=== PATIENT | male | born 1980 | race Caucasian/White ===

== ENCOUNTER 2019-11-10 08:00 | Outpatient (CLI) | payer OTHER | END 2019-11-10 23:59 | disposition home or self-care (01) | LOC: LAB.R 08:00 | PROVIDERS: ATTEND Podiatrist | DX: L03.031 Cellulitis of right toe (principal); L03.032 Cellulitis of left toe | CPT/HCPCS: 87070; 87181; 87205 ==

== ENCOUNTER 2021-01-16 14:32 | Outpatient (CLI) | payer OTHER ==
--- NOTE | 2021-01-16 16:57 | MRI Report ---
PROCEDURE: Foot RT W/O INDICATIONS: RIGHT FOOT PAIN TECHNIQUE: Noncontrast coronal and sagittal T1 spin echo and STIR; axial T1 spin echo and T2 fast spin echo with fat saturation through the right foot. COMPARISON: None. FINDINGS: Image quality: Excellent. Bones: The visualized bone marrow demonstrates normal signal on all sequences. The overlying cortex appears intact. Cjpb-se-calxvosy first MTP joint degeneration. No fractures lines or intra-osseous l esions. Scattered subchondral sclerosis and spurring. Soft tissues: The scanned muscles demonstrate normal overall bulk and internal signal. Subcutaneous tissues appear normal as well. No soft tissue masses are present. In the area marked by the skin f iducial at the plantar aspect of the midfoot/forefoot, no underlying signal abnormality is seen. The plantar fascia appears grossly normal. IMPRESSION: Unremarkable appearance of the plantar aspect of the midfoot/forefoot. Theoretically, an MR occult lo w-grade plantar fasciitis is still a differential consideration based on clinical exam findings. Elsewhere, scattered degenerative changes as above Reviewed by: Tristan Campos MD on 01/16/2021 4:56 PM PDT Approved by: Tristan Campos MD on 01/16/2021 4:56 PM PDT Station ID: [id number]
== END 2021-01-16 14:33 | disposition home or self-care (01) ==
LOC: DI 14:32
PROVIDERS: ATTEND Podiatrist
DX: M19.071 Primary osteoarthritis, right ankle and foot (principal)

== ENCOUNTER 2021-07-17 12:30 | Outpatient (CLI) | payer OTHER ==
--- NOTE | 2021-07-17 14:19 | MRI Report ---
PROCEDURE: MRI lumbar spine without contrast INDICATIONS: LOW BACK PAIN TECHNIQUE: Noncontrast sagittal T1 spin echo and T2 fast echo, sagittal STIR, axial T1 and T2 fast spin echo thr ough the lumbar spine. In cases with scoliosis, additional coronal T2 fast spin echo may be performe d. COMPARISON: None. FINDINGS: Image quality: Excellent. Alignment and Curvature: There is normal bony alignment. Bone Marrow: Marrow is of normal overall signal. No acute vertebral body compression fractures. Spinal Cord: Conus medullaris terminates at the L1 level. Visualized cord demonstrates normal signa l and size. Paraspinous Soft Tissues: No paravertebral masses. T12-L1: Normal in appearance. L1-L2: Normal in appearance. L2-L3: Normal in appearance. L3-L4: Normal in appearance. L4-L5: Normal in appearance. L5-S1: Normal in appearance. IMPRESSION: Unremarkable MRI lumbar spine. No central or foraminal stenosis. Reviewed by: Yusef Breen MD on 07/17/2021 1:18 PM ROXANE Approved by: Yusef Breen MD on 07/17/2021 1:18 PM AKISIAH Station ID: [id number]
== END 2021-07-17 12:31 | disposition home or self-care (01) ==
LOC: DI 12:30
DX: M54.50 Low back pain, unspecified (principal)

== ENCOUNTER 2021-10-10 14:22 | Emergency (ER) | payer OTHER ==
[2021-10-10 14:34] VITALS: BP 144/113
--- NOTE | 2021-10-10 15:15 | ED Physician Documentation ---
PD HPI HEADACHE - Stated complaint Stated Complaint: MIGRANE,NOSE BLEEDS - Chief complaint Chief Complaint: Neuro - History obtained from History obtained from: Patient - Additional information Additional information: Previously healthy 40-year-old gentleman has had 3 nosebleeds over the last day or 2 always from the left side. It is preceded by some lightheadedness. Last 15 to 20 minutes at a time. Last night he had a nosebleed around 9 PM and then as it went away developed a bitemporal fairly sudden onset headache. He does not have a history of migraines or other primary headache syndrome. He tried Excedrin which was helpful but not curative. He denies neck stiffness or fevers. Review of Systems Constitutional: denies: Fever, Chills Nose: denies: Rhinorrhea / runny nose Cardiac: denies: Palpitations Respiratory: denies: Dyspnea, Cough PD PAST MEDICAL HISTORY - Allergies Allergies/Adverse Reactions: Allergies Allergy/AdvReac Type Severity Reaction Status Date / Time No Known Drug Allergies Allergy Verified 10/10/21 14:30 PD ED PE NORMAL - Vitals Vital signs reviewed: Yes - General General: Alert and oriented X 3, No acute distress - HEENT HEENT: PERRL, EOMI, Pharynx benign - Neck Neck: Supple, no meningeal sign, No bony TTP - Neuro Neuro: Alert and oriented X 3, barrel charrer helper 2-12 intact, No motor deficit, No sensory deficit, Normal speech Eye Opening: Spontaneous Motor: Obeys Commands Verbal: Oriented GCS Score: 15 - Psych Psych: Normal mood, Normal affect Results - Vitals Vitals: Vital Signs - 24 hr 10/10/21 14:25 Temperature 36.7 C Heart Rate 78 Respiratory 14 Rate Blood Pressure 144/113 H O2 Saturation 100 Oxygen O2 Source Room air - Rads (name of study) CT Head Radiology: EMP read contemporaneously (NAD/NL) PD MEDICAL DECISION MAKING - ED course ED course: 40-year-old gentleman with headache associated with epistaxis. Normal exam and initially did not want anything for the headache. Looks well without meningismus or signs of infection. CT of the head was unremarkable, and prior to discharge was given 60 mg of Toradol IM. Departure - Departure Disposition: 01 Home, Self Care Clinical Impression: Epistaxis Headache Qualifiers: Headache type: unspecified Headache chronicity pattern: acute headache Intractability: not intractable Qualified Code(s): R51.9 - Headache, unspecified Condition: Good Record reviewed to determine appropriate education?: Yes Instructions: ED Nosebleed, ED Cephalgia Unspecified Comments: Tylenol and/or ibuprofen as needed for pain. Drink plenty of fluids. Return if worse. [place] appointment.
--- NOTE | 2021-10-10 15:52 | CT Report ---
PROCEDURE: HEAD WO INDICATIONS: headache TECHNIQUE: Noncontrast 4.5 mm thick angled axial sections acquired from the foramen magnum to the vertex. For r adiation dose reduction, the following was used: automated exposure control, adjustment of mA and/or kV according to patient size. COMPARISON: None. FINDINGS: Image quality: Excellent. CSF spaces: Basal cisterns are patent. No extra-axial fluid collections. Ventricles are normal in size and shape. Brain: No midline shift. No intracranial masses or hemorrhage. Oneill-white matter interface is norm al. Skull and face: Calvarium and visualized facial bones are intact, without suspicious lesions. Sinuses: Visualized sinuses and mastoids are clear. IMPRESSION: No acute intracranial disease process. Reviewed by: Angella John MD, PhD on 10/10/2021 3:50 PM PDT Approved by: Angella John MD, PhD on 10/10/2021 3:50 PM PDT Station ID: [id number]
[2021-10-10] MEDS ORDERED: KETOROLAC 60 MG/2 ML VIAL IM STA (16:00)
== END 2021-10-10 16:09 | disposition home or self-care (01) ==
LOC: ED 14:22
DX: R04.0 Epistaxis (principal); R51.9 Headache, unspecified
CPT/HCPCS: 96372; 99282; 99284

== ENCOUNTER 2022-03-03 10:47 | Emergency (ER) | payer OTHER ==
--- OUTSIDE RECORDS SUMMARY | 2022-03-03 11:03 | EXTERNAL MEDICAL SUMMARY RPT | Continuity of Care Document ---
:1980 Author Organization [facility] Address [address] [place] [phone] Phone Allergies No information. Encounters No information. Functional Status No information. Immunizations No information. Medications No information. Problems No information. Procedures No information. Results/Labs test date author facility value unit interpret ation Result panel 1 (unknown) (no (unknown) (unknown) (no value) (units (unk nown) date) unknown) (unknown) (no (unknown) (unknown) 01/16/22 (units (unkno wn) date) unknown) (unknown) (no (unknown) (unknown) [address] [place] [address] (units (unknown) date) unknown) (unknown) (no (unknown) (unknown) Accession (units (unkn own) date) Number: unknown) [id number] (unknown) (no (unknown) (unknown) Age/Sex: 41 / M (units (unknown) date) Date of Service: unknown) (unknown) (no (unknown) (unknown) [place], [place] (units ( unknown) date) [id number] unknown) (unknown) (no (unknown) (unknown) Anterior (units (unkno wn) date) circulation: unknown) Intracranial internal carotid arteries demonstrate (unknown) (no (unknown) (unknown) Approved by: (units (u nknown) date) edi Jesus M.D. on 01/16/2022 at 9:34 (unknown) (no (unknown) (unknown) COMPARISON: (units (un known) date) None. unknown) (unknown) (no (unknown) (unknown) : 1980 (units (unknown) date) Acct:[id number] unknown) (unknown) (no (unknown) (unknown) FINDINGS: (units (unkn own) date) unknown) (unknown) (no (unknown) (unknown) Hypoplasia/aplas (units (unknown) date) ia of the unknown) (unknown) (no (unknown) (unknown) IMPRESSION: (units (un known) date) unknown) (unknown) (no (unknown) (unknown) INDICATIONS: (units (u nknown) date) Headache, unknown) unspecified (unknown) (no (unknown) (unknown) Image quality: (units (unknown) date) Excellent. unknown) (unknown) (no (unknown) (unknown) [facility] (units (unknown) date) unknown) (unknown) (no (unknown) (unknown) Loc: MRI (units (unkno wn) date) unknown) (unknown) (no (unknown) (unknown) [id number] (units (unk nown) date) unknown) (unknown) (no (unknown) (unknown) Magnetic (units (unkno wn) date) Resonance Report unknown) (unknown) (no (unknown) (unknown) Noncontrast (units (un known) date) axial 3-D unknown) [id number] MR angiogram, with 3-dimensional maximum (unknown) (no (unknown) (unknown) Normal MR (units (unkn own) date) angiogram of the unknown) brain (unknown) (no (unknown) (unknown) Ordering (units (unkno wn) date) Provider: unknown) Tino De Leon (unknown) (no (unknown) (unknown) PROCEDURE: MR (units ( unknown) date) ANGIO HEAD WO CON unknown) (unknown) (no (unknown) (unknown) Patient: (units (unkno wn) date) AguedaedwardFrancisco Javier espinoza unknown) MR#: (unknown) (no (unknown) (unknown) Posterior (units (unkn own) date) circulation: unknown) Visualized portions of the vertebral arteries (unknown) (no (unknown) (unknown) Procedure: MR (units ( unknown) date) angio head wo con unknown) (unknown) (no (unknown) (unknown) Signed (units (unkno wn) date) unknown) (unknown) (no (unknown) (unknown) TECHNIQUE: (units (unk nown) date) unknown) (unknown) (no (unknown) (unknown) and (units (unkno wn) date) unknown) (unknown) (no (unknown) (unknown) aneurysms. (units (unk nown) date) unknown) (unknown) (no (unknown) (unknown) arteries is (units (un known) date) unknown) (unknown) (no (unknown) (unknown) artery. (units (unkno wn) date) Remainder of the unknown) distal vasculature unremarkable. No stenoses, (unknown) (no (unknown) (unknown) caliber, and (units (u nknown) date) join to form a unknown) normal appearing basilar artery. (unknown) (no (unknown) (unknown) circulation (units (un known) date) unknown) (unknown) (no (unknown) (unknown) communicating (units ( unknown) date) unknown) (unknown) (no (unknown) (unknown) demonstrate (units (un known) date) normal unknown) (unknown) (no (unknown) (unknown) intensity (units (unkn own) date) unknown) (unknown) (no (unknown) (unknown) intraluminal (units (u nknown) date) flow signal. The unknown) flow within the paired anterior cerebral (unknown) (no (unknown) (unknown) normal and (units (unk nown) date) symmetric. The unknown) flow within the middle cerebral arteries is normal (unknown) (no (unknown) (unknown) normal size and (units (unknown) date) unknown) (unknown) (no (unknown) (unknown) occlusions, or (units (unknown) date) unknown) (unknown) (no (unknown) (unknown) projection (MIP) (units (unknown) date) reformats of the unknown) internal carotid arteries and posterior (unknown) (no (unknown) (unknown) right P1 FREIGHT MANAGER (units (u nknown) date) noted. The P2 unknown) segment is supplied by a widely patent posterior (unknown) (no (unknown) (unknown) symmetric. The (units (unknown) date) anterior unknown) communicating artery is seen. No stenoses, (unknown) (no (unknown) (unknown) then performed. (units (unknown) date) unknown) Social History No information. Vital Signs No information.
[2022-03-03 11:46] LABS: RAPID STREP SCREEN Negative (Negative)
[2022-03-03 12:24] LABS: B. PARAPERTUSSIS- RESP PCR PAN NOT DETECTED; B. PERTUSSIS- RESP PCR PANEL NOT DETECTED; C. PNEUMONIAE- RESP PCR PANEL NOT DETECTED; CORONAVIRUS 229E-RESP PCR NOT DETECTED; CORONAVIRUS HKU1-RESP PCR NOT DETECTED; CORONAVIRUS NL63-RESP PCR NOT DETECTED; CORONAVIRUS OC43-RESP PCR NOT DETECTED; HUMAN METAPNEUMOVIRUS NOT DETECTED; INFLUENZA A H3- RESP PCR PANEL DETECTED; INFLUENZA B - RESP PCR PANEL NOT DETECTED; M. PNEUMONIAE- RESP PCR PANEL NOT DETECTED; PARAINFLUENZA VIRUS 1 NOT DETECTED; PARAINFLUENZA VIRUS 2 NOT DETECTED; PARAINFLUENZA VIRUS 3 NOT DETECTED; PARAINFLUENZA VIRUS 4 NOT DETECTED; RHINOVIRUS/ENTEROVIRUS NOT DETECTED; RSV- RESP PCR PANEL NOT DETECTED; SARS-CoV-2 -RESP PCR PANEL NOT DETECTED
[2022-03-03] MEDS ORDERED: KETOROLAC 60 MG/2 ML VIAL IM STA (12:44)
--- NOTE | 2022-03-03 12:50 | ED Physician Documentation ---
History of Present Illness - Stated complaint Stated Complaint: FEVER/THROAT PX - Chief complaint Chief Complaint: Neuro - History obtained from History obtained from: Patient - History of Present Illness Timing: Today Pain level max: 5 Pain level now: 5 - Additonal information Additional information: 41-year-old male states he started to become ill yesterday. Fever, body aches, cough. Sore throat. Headache. Has not taken anything. He states he called the nurse advice line and was directed to the ER. He is active [employer]. No abdominal pain. No vomiting. No diarrhea. He states he has chronic migraine headaches, usually takes Excedrin but his doctor wanted to avoid medications until they decide how to treat his migraines. The headache is gradual in onset, holoacranial, dull, aching. Has light sensitivity. Similar to prior headaches. Review of Systems Constitutional: reports: Fever, Chills Nose: reports: Rhinorrhea / runny nose, Congestion Throat: reports: Sore throat GI: denies: Vomiting, Diarrhea Skin: denies: Rash Musculoskeletal: denies: Neck pain, Back pain Neurologic: denies: Headache PD PAST MEDICAL HISTORY - Past Medical History Cardiovascular: None Respiratory: None Neuro: Other (recent headache c/w migraine. ) Endocrine/Autoimmune: None - Present Medications Home Medications: Ambulatory Orders Medication Instructions Recorded Confirmed Ondansetron Odt [Zofran] 4 mg TL Q6H PRN #10 tablet 10/17/21 Sumatriptan Succinate [Imitrex] 50 mg PO Q4H PRN #5 tablet 10/17/21 dexAMETHasone [Decadron] 4 mg PO DAILY #5 tablet 10/17/21 Baloxavir Marboxil [Xofluza] 40 mg PO ONCE #1 tablet 03/03/22 - Allergies Allergies/Adverse Reactions: Allergies Allergy/AdvReac Type Severity Reaction Status Date / Time No Known Drug Allergies Allergy Verified 03/03/22 10:58 PD ED PE NORMAL - Vitals Vital signs reviewed: Yes - General General: Alert and oriented X 3, No acute distress - HEENT HEENT: Atraumatic, PERRL, Moist mucous membranes, Pharynx benign - Neck Neck: Supple, no meningeal sign - Cardiac Cardiac: RRR, Strong equal pulses - Respiratory Respiratory: No respiratory distress, Clear bilaterally - Abdomen Abdomen: Soft, Non tender, Non distended - Derm Derm: Warm and dry - Neuro Neuro: Alert and oriented X 3 - Psych Psych: Normal mood, Normal affect Results - Vitals Vitals: Vital Signs - 24 hr 03/03/22 10:54 Temperature 36.9 C Heart Rate 96 Respiratory 16 Rate Blood Pressure 136/89 H O2 Saturation 100 Oxygen O2 Source Room air - Labs Labs: Laboratory Tests 03/03/22 03/03/22 11:24 11:24 Nasal Adenovirus (PCR) NOT DETECTED Nasal B. parapertussis DNA (PCR) NOT DETECTED Nasal Coronavir 229E PCR NOT DETECTED Nasal Coronavir HKU1 PCR NOT DETECTED Nasal Coronavir NL63 PCR NOT DETECTED Nasal Coronavir OC43 PCR NOT DETECTED Nasal Enterovir/Rhinovir PCR NOT DETECTED Nasal Influenza A H3 PCR DETECTED A Nasal Influenza B PCR NOT DETECTED Nasal Parainfluen 1 PCR NOT DETECTED Nasal Parainfluen 2 PCR NOT DETECTED Nasal Parainfluen 3 PCR NOT DETECTED Nasal Parainfluen 4 PCR NOT DETECTED Nasal RSV (PCR) NOT DETECTED Nasal B.pertussis DNA PCR NOT DETECTED Nasal C.pneumoniae (PCR) NOT DETECTED Russ Human Metapneumo PCR NOT DETECTED Nasal M.pneumoniae (PCR) NOT DETECTED Nasal SARS-CoV-2 (PCR) NOT DETECTED Group A Strep Rapid Negative PD MEDICAL DECISION MAKING - ED course Complexity details: considered differential, d/w patient ED course: 41-year-old male positive for influenza A. We will continue supportive care at home. Given Toradol here. Feels better. Will place on Xofluza as well. Discussed risks and benefits and he elected to take the Xofluza. No evidence of pneumonia. No hypoxia. No respiratory distress. Patient is very well- appearing, nontoxic. Patient counseled regarding signs and symptoms for which I believe and urgent re-evaluation would be necessary. Patient with good understanding of and agreement to plan and is comfortable going home at this time This document was made in part using voice recognition software. While efforts are made to proofread this document, sound alike and grammatical errors may occur. Departure - Departure Disposition: 01 Home, Self Care Clinical Impression: Influenza A Condition: Good Instructions: ED Flu Follow-Up: LILLI ARCOS MD [Primary Care Provider] - Within 1 week Prescriptions: Baloxavir Marboxil [Xofluza] 40 mg PO ONCE #1 tablet Comments: Your prescription was sent to [facility] in [place]. Please follow-up with your doctor for further care. Return if you worsen. You tested positive for influenza A today. You can use Motrin or Tylenol as needed at home for body aches and fevers. Forms: Activity restrictions
[2022-03-03 13:31] VITALS: BP 133/84
== END 2022-03-03 13:31 | disposition home or self-care (01) ==
LOC: ED 10:47
DX: J10.1 Influenza due to other identified influenza virus with other respiratory manifestations (principal); Z20.822 Contact with and (suspected) exposure to COVID-19
CPT/HCPCS: 87070; 87430; 87633; 96372; 99282; 99283

== ENCOUNTER 2023-02-19 14:07 | Outpatient (CLI) | payer OTHER ==
--- NOTE | 2023-02-19 14:39 | Sleep Patient Instructions ---
Sleep Center Visit Summary - Patient Visit Information Reason for Visit: Initial consult for evaluation of sleep disordered breathing and other sleep issues. - Patient Instructions Instructions Attached: Sleep Study Additional Instructions: You will be completing a sleep study, either an in-lab polysomnography (PSG) or home sleep study (HST). You will follow-up in the sleep care office after the sleep study is completed to hear the results and talk about therapy, if needed. You will be called by our office staff to schedule this appointment, but you may contact us with any questions. - Clinic Information Contact: [facility] [address] [place] [address] [email or web address] T: [phone]
--- NOTE | 2023-02-19 14:46 | SLEEP CARE CONSULTATION ---
Information from patient questionnaire entered by Francia Garcia. I have reviewed and concur with the information entered by Francia Garcia. This document represents the service I personally performed and the decisions made by me, Sabine Valencia ARNP. History of Present Illness Service Date and Time: 02/19/2023 1407 Reason for Visit: New patient Chief Complaint: reports: Unrefreshed sleep, Snoring, Excessive daytime sleepiness, Fatigue, Frequent awakenings at night Date of Onset: 5+YRS Usual bedtime: 10PM Time it takes to fall asleep: NOT SURE 30-45MINS Snores at night: Yes Observed to quit breathing while asleep: No Sleeps alone due to snoring: No Number of times waking at night: 10-15 Reasons for waking at night: reports: Choking, Snoring, Gasping for air (once or twice), Other (UNKNOWN) Toss, Turn, or Twitch while sleeping: Yes Recalls having dreams: Yes Usually gets out of bed at: 6AM; weekends sometimes 0800 Feels refreshed in the morning: No Morning headache: Yes (5-6 days a week; last for hours) Sleepy or fatigued during the day: Yes Ever fallen asleep while driving: No Takes day naps: Yes (1 time a week, maybe) Dreams during day naps: Yes Prior sleep studies: No Additional HPI information: I had the pleasure of seeing FRANCISCO JAVIER TATUM today regarding the possibility of him having a sleep disorder. His current complaints are excessive daytime sleepiness, fatigue, frequent night awakenings, snoring and unrefreshed sleep. He states he is always tired. He never seems to be rested enough "no matter what" he does for sleep. He is currently taking trazadone but it does not seem to help him get to sleep. He only sleeps about 4-5 hours a night. He cannot sleep for more than 5 hours because his back will hurt and he cannot go back to sleep. He takes 1-2 hours to get to sleep and will then wake up 10-15 times throughout the night. He always looks at clock when he wakes up. He states his will wake him up because of loud snoring but this has only been a couple times. She has never told him that she saw him stop breathing when sleeping. He states that he can wake up with headaches about 5-6 days a week and has a history of migraines. He says he has to keep moving or he will get drowsy. He experiences difficulty concentrating when he has headaches. 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 Patient is and lives in [place]. Have you smoked in the past 12 months: No Alcohol use: No Caffeine use: Yes Caffeine amount and frequency: 2-3 DAILY Family History Family history of sleep disordered breathing: Yes Family Hx Sleep Apnea: Sibling: Snoring, Grandparent: Snoring Allergies and Home Medications Known drug allergies: No Drug allergies reviewed: Yes Home medication list reviewed: Yes Allergy and home medication list: Allergies No Known Drug Allergies Allergy (Verified 02/18/23 15:33) Home Medications Medication Instructions Recorded Confirmed Last Taken Type Indomethacin [Indocin] See Rx Instructions .ROUTE .COMPLEX 02/19/23 02/19/23 Unknown History Metoclopramide [Reglan] See Rx Instructions .ROUTE .COMPLEX 02/19/23 02/19/23 Unknown History Multivit,Calc,Min/FA/K1/Lycop [One See Rx Instructions .ROUTE .COMPLEX 02/19/23 02/19/23 Unknown History Daily Men's Multivitamin] Rizatriptan Benzoate [Rizatriptan] See Rx Instructions .ROUTE .COMPLEX 02/19/23 02/19/23 Unknown History Verapamil [Calan] See Rx Instructions .ROUTE .COMPLEX 02/19/23 02/19/23 Unknown History traZODone [Desyrel] See Rx Instructions .ROUTE .COMPLEX 02/19/23 02/19/23 Unknown History Review of Systems Cardiovascular: reports: high blood pressure Gastrointestinal: reports: heartburn Neurological: reports: headaches Psychiatric: reports: anxiety Ear/Nose/Throat: reports: tonsillectomy, wisdom teeth removed Endocrine: reports: sluggishness Musculoskeletal: reports: back pain Physical Exam Vital signs obtained and entered by: FRANCIA Malhotra MA Blood Pressure: 120/78 (LEFT ARM) Heart Rate: 84 O2 Saturation: 98 Height: 5 ft 7 in Weight: 169 lb Body Mass Index: 26.4 BMI Classification: Overweight Neck circumference: 14.25 Mouth and throat: narrow oropharynx Soft palate: long Hard palate: normal Uvula: normal Uvula visualization: 0% Mallampati Class IV Tonsils: absent bilaterally Neck: normal w/o lymphadenopathy or thyromegaly Heart: regular rate and rhythm Lungs: clear bilaterally Impression and Plan 1. Suspected Obstructive Sleep Apnea-Hypopnea Syndrome, as suggested by a history of loud and irregular snoring, gasping or choking in sleep, morning headache, frequent awakening during the night, unrefreshed sleep, cognitive impairment, and excessive daytime sleepiness. Narrow oropharynx and obesity are common predisposing factors for obstructive sleep apnea-hypopnea syndrome. I recommend proceeding to polysomnography to confirm the diagnosis and to assess severity. If the patient has significant sleep disordered breathing, a manual CPAP titration study will also be performed to find the optimal treatment pressure. I informed the patient of what the sleep studies involve and after some discussion, obtained agreement to proceed. The pathophysiology of obstructive sleep apnea-hypopnea syndrome was discussed with the patient and health risks of cardiovascular and cerebrovascular disease if not treated. Risks of drowsy driving discussed in detail and patient advised to avoid long distance driving and to fur puller at the first sign of drowsiness. Patient agreed to plan. * Schedule polysomnography. * Avoid long distance driving or driving when feeling sleepy. * Avoid alcohol, sedative and muscle relaxant around bedtime. * Attempt to lose weight. * Review instructions provided by trained office staff on how to prepare for the sleep study. * Return for follow-up after sleep study completed. Counseling Topics: Weight loss health impact Plan: PSG and followup Visit Type: In Office Time Spent with Patient (minutes): 30 Provider Statement: I spent 100% of the Face to Face Visit with the patient with greater than 50% spent counseling the patient and coordination of care.
[2023-02-19 14:48] VITALS: BP 120/78; O2SAT 98
== END 2023-02-19 14:08 | disposition home or self-care (01) ==
LOC: SC 14:07
PROVIDERS: ATTEND Nurse Practitioner Family
DX: R06.83 Snoring (principal); G47.8 Other sleep disorders; R51.9 Headache, unspecified; G47.10 Hypersomnia, unspecified; R53.83 Other fatigue; I10 Essential (primary) hypertension; E66.3 Overweight; Z68.26 Body mass index [BMI] 26.0-26.9, adult
CPT/HCPCS: 99203; 99212

== ENCOUNTER 2023-03-30 19:38 | Outpatient (CLI) | payer OTHER | END 2023-03-30 19:39 | disposition home or self-care (01) | LOC: SC 19:38 | PROVIDERS: ATTEND Nurse Practitioner Family | DX: R06.83 Snoring (principal); G47.8 Other sleep disorders; R51.9 Headache, unspecified; G47.10 Hypersomnia, unspecified; R53.83 Other fatigue; I10 Essential (primary) hypertension; E66.3 Overweight; Z68.26 Body mass index [BMI] 26.0-26.9, adult | CPT/HCPCS: 95810 ==

== ENCOUNTER 2023-04-16 09:04 | Outpatient (CLI) | payer OTHER ==
--- NOTE | 2023-04-16 09:51 | SLEEP CARE CONSULTATION ---
Information from patient questionnaire entered by Francia Garcia. I have reviewed and concur with the information entered by Francia Garcia. This document represents the service I personally performed and the decisions made by , Sabine Valencia ARNP. History of Present Illness Service Date and Time: 04/16/2023 09 Initial [place] Sleepiness Scale score: 10 (02/19/23) Current [place] Sleepiness Scale score: 11 (04/16/23) Additional HPI information: FRANCISCO JAVIER TATUM returns for follow up and results of the recently performed polysomnography. The patient was informed of the following findings: No significant sleep disordered breathing with an average AHI of 1.0 and ward oxygen saturation of 93%. I explained the pathophysiology behind obstructive sleep apnea. Patient does not have sleep apnea and was advised how weight gain could increase the risk of developing sleep apnea in the future. Patient has light to loud snoring. Snoring can be reduced by weight loss. Weight loss is best achieved with diet consult. Patient instructed to contact PCP for referral. Snoring can also be treated with an oral appliance from a dentist. Advised to check insurance coverage. In addition, an ENT evaluation can be do to see if other treatment is indicated. Patient does not drink alcohol. Patient was cautioned about risks of drowsy driving until sleepiness symptoms resolve. Patient denies drowsy driving. Sleep Study - Results Type of Sleep Study: Polysomnography (COMPLETED 03/30/23) Prior sleep studies: No Polysomnography/Home Sleep Study results: IMPRESSION: The quality of the study is good. The patient had slightly reduced sleep efficiency due to sleep onset insomnia. The sleep architecture was relatively normal considering the first- night effect. Respiratory monitoring showed no significant sleep disordered breathing (AHI = 1.0) or hypoxia (ward oxygen saturation of 93%). The patient slept adequately in supine position (supine AHI = 3.2; non-supine = 0.00). Snore was light to loud in intensity. There was no significant periodic leg movement of sleep. Cardiac rhythm was normal sinus rhythm without significant arrhythmia. No abnormal behavior (parasomnia) observed during the night. Allergies and Home Medications Known drug allergies: No Drug allergies reviewed: Yes Home medication list reviewed: Yes (no changes) Allergy and home medication list: Allergies No Known Drug Allergies Allergy (Verified 04/15/23 09:41) Review of Systems Review of systems same as previous: Yes (NO CHANGE) Physical Exam Vital signs obtained and entered by: FRANCIA Malhotra MA Blood Pressure: 139/92 (LEFT ARM) Cuff size: regular Heart Rate: 77 O2 Saturation: 100 Height: 5 ft 7 in Weight: 164 lb 9.6 oz Body Mass Index: 25.7 BMI Classification: Overweight Impression and Plan 1. Snoring but no significant sleep disordered breathing. Patient advised that often weight loss will reduce snoring as well as apnea risk. An oral appliance can also be used for snoring. This would require a dental consultation. Patient cautioned not to use other online appliances as can cause bite issues. A list of accredited dentists in area and one local dentist who makes oral appliances given. Patient is advised to check if insurance will cover. An ENT consult can also be helpful to determine if any other treatment is an option. 2. Insomnia, sleep onset. Insomnia is generally caused by an irregular sleep schedule, spending too much time in bed, napping, caffeine, electronics, lack of a relaxing bedtime ritual and clock watching. Other factors can include anxiety/depression, pain, medications, and obstructive sleep apnea. First I counseled the patient on the importance of a regular sleep schedule, starting with the wake time. I explained the homestatic sleep drive and how maintaining a regular wake time will allow the patient to be tired enough to sleep 15-16 hours later. Naps are to be avoided unless overcome by sleepiness. Then naps are to be restricted to one hour and before 3 pm so as not to interfere with nighttime sleep. The alarm clock should be set and the face covered to prevent clock watching if awakened during the night. Knowing the time can cause anxiety and increase alertness and thinking about sleep time and preparation for the next day. [employer] How to Sleep Better pamphlet given and reviewed. A sleep diary will be completed for the next 2 weeks to assist implementation of recommendations and for further evaluation of sleep concerns. * Two weeks sleep diary * Avoid alcohol consumption near bedtime * The patient is cautioned about driving until sleepiness is completely resolved. * Return in 1-2 months for insomnia Follow up with Sleep Care in: 1-2 months (for Insomnia) Visit Type: In Office Time Spent with Patient (minutes): 20 Provider Statement: I spent 100% of the Face to Face Visit with the patient with greater than 50% spent counseling the patient and coordination of care.
[2023-04-16 09:54] VITALS: BP 139/92; O2SAT 100
== END 2023-04-16 09:05 | disposition home or self-care (01) ==
LOC: SC 09:04
PROVIDERS: ATTEND Nurse Practitioner Family
DX: R06.83 Snoring (principal); G47.09 Other insomnia; E66.3 Overweight; Z68.25 Body mass index [BMI] 25.0-25.9, adult
CPT/HCPCS: 99212; 99213

== ENCOUNTER 2023-05-19 13:21 | Outpatient (CLI) | payer OTHER ==
--- NOTE | 2023-05-19 20:31 | SLEEP CARE CONSULTATION ---
Information from patient questionnaire entered by Ralph Garcia. I have reviewed and concur with the information entered by Ralph Garcia. This document represents the service I personally performed and the decisions made by me, Sherri Collazo MD, [facility]. History of Present Illness Service Date and Time: 05/19/2023 1321 Reason for follow up: other (1 MONTH F/U INSOMNIA) Prior sleep studies: No Type of Sleep Study: Polysomnography (COMPLETED 03/30/23) HPI additional information: Mr. Coyle complains of insomnia, unrefreshed sleep, and persistent fatigue. 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 He reports going to bed at 3 am and getting up near noon is very refreshing. Normally, when he works the day shift, he goes to bed at 10 pm and gets up around 6 am. On weekends, he gets up at 7:30 am. His sleep study last year did not show sleep disrupting conditions. He had slightly reduced sleep efficiency. Sleep Study - Results Type of Sleep Study: Polysomnography (COMPLETED 03/30/23) Prior sleep studies: No Subjective Initial [place] Sleepiness Scale score: 10 (02/19/23) Current [place] Sleepiness Scale score: 11 (05/19/23) Allergies and Home Medications Drug allergies reviewed: Yes Home medication list reviewed: Yes Allergy and home medication list: Allergies No Known Drug Allergies Allergy (Verified 05/16/23 12:36) Review of Systems Review of systems same as previous: Yes (NO CHANGE) Physical Exam Vital signs obtained and entered by: RALPH Malhotra MA Blood Pressure: 138/86 (RIGHT ARM) Cuff size: regular Heart Rate: 86 O2 Saturation: 98 Height: 5 ft 7 in Weight: 161 lb 9.6 oz Body Mass Index: 25.2 BMI Classification: Overweight Impression and Plan IMPRESSION: 1. Delayed sleep phase syndrome, causing sleep onset insomnia and insufficient sleep when he works the regular day shift. Unfortunately, he cannot regularly work nights. Therefore, I advised him to maintain his weekday wakeup time at 6 am every morning, especially on the weekends. I will prescribe him zolpidem 5 mg to use the first month. PLAN: 1. Wakeup no later than 6 am every day. 2. Take zolpidem 2.5 to 5 mg at bedtime on as needed basis. 3. Continue to keep the sleep log. 4. Return for a follow up in one month. Prescriptions: Other (zolpidem 5 mg) Follow up with Sleep Care in: 1-2 months Visit Type: In Office Time Spent with Patient (minutes): 15 Provider Statement: I spent 100% of the Face to Face Visit with the patient with greater than 50% spent counseling the patient and coordination of care.
[2023-05-19 20:33] VITALS: BP 138/86; O2SAT 98
== END 2023-05-19 13:22 | disposition home or self-care (01) ==
LOC: SC 13:21
PROVIDERS: ATTEND Internal Medicine Pulmonary Disease
DX: G47.21 Circadian rhythm sleep disorder, delayed sleep phase type (principal)
CPT/HCPCS: 99212

== ENCOUNTER 2023-05-30 12:20 | Emergency (ER) | payer OTHER ==
[2023-05-30 12:33] VITALS: BP 132/93; O2SAT 100
--- NOTE | 2023-05-30 12:48 | ED Physician Documentation ---
History of Present Illness - Stated complaint Stated Complaint: - Chief complaint Chief Complaint: General - Additonal information Additional information: 42-year-old male sent to the emergency department from walk-in clinic for 3 days of left testicular pain. Per Dr. Phipps was sent patient over he lacks cremasteric reflex of the left testicle. Patient says that he has had no injuries or trauma to the testicular region no new sexual partners he is able to void without difficulty but describes the left testicular pain as a constant dull achy sensation and so bothersome that he is having a hard time sleeping and getting comfortable. No fevers or chills, no back pain no nausea or vomiting no abdominal pain. Patient also denies any history of STIs. PD PAST MEDICAL HISTORY - Past Medical History Past Medical History: Yes Cardiovascular: None Respiratory: None Neuro: Migraines, Other Endocrine/Autoimmune: None - Past Surgical History Past Surgical History: No - Present Medications Home Medications: Ambulatory Orders Medication Instructions Recorded Confirmed Indomethacin [Indocin] See Rx Instructions .ROUTE .COMPLEX 02/19/23 05/19/23 Metoclopramide [Reglan] See Rx Instructions .ROUTE .COMPLEX 02/19/23 05/30/23 Multivit,Calc,Min/FA/K1/Lycop [One See Rx Instructions .ROUTE .COMPLEX 02/19/23 05/30/23 Daily Men's Multivitamin] Rizatriptan Benzoate [Rizatriptan] See Rx Instructions .ROUTE .COMPLEX 02/19/23 05/30/23 Verapamil [Calan] See Rx Instructions .ROUTE .COMPLEX 02/19/23 05/30/23 traZODone [Desyrel] See Rx Instructions .ROUTE .COMPLEX 02/19/23 05/30/23 Naproxen 500 mg PO BID #30 cap 05/30/23 Sulfamethox/Trimeth 800/160 1 tablet PO BID 10 Days #20 tablet 05/30/23 [Bactrim Ds] - Allergies Allergies/Adverse Reactions: Allergies Allergy/AdvReac Type Severity Reaction Status Date / Time No Known Drug Allergies Allergy Verified 05/30/23 12:28 - Social History Does the pt smoke?: No Smoking Status: Never smoker Does the pt drink ETOH?: No Does the pt have substance abuse?: No - Immunizations Immunizations are current?: Yes PD ED PE NORMAL - Vitals Vital signs reviewed: Yes - General General: Alert and oriented X 3, No acute distress, Well developed/nourished - HEENT HEENT: Atraumatic - Abdomen Abdomen: Normal bowel sounds, Soft, Non tender - 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, Other (Cremasteric reflex absent bilaterally, epididymitis, testicular tenderness, no rash or lesions to genital area) - Derm Derm: Normal color, Warm and dry Results - Vitals Vitals: Vital Signs - 24 hr 05/30/23 12:28 Temperature 36.9 C Heart Rate 81 Respiratory 16 Rate Blood Pressure 132/93 H O2 Saturation 100 Oxygen O2 Source Room air - Labs Labs: Laboratory Tests 05/30/23 12:51 Urine Color YELLOW Urine Clarity CLEAR Urine pH 6.0 Ur Specific Cassel 1.025 Urine Protein NEGATIVE Urine Glucose (UA) NEGATIVE Urine Ketones NEGATIVE Urine Occult Blood NEGATIVE Urine Nitrite NEGATIVE Urine Bilirubin NEGATIVE Urine Urobilinogen 0.2 (NORMAL) Ur Leukocyte Esterase NEGATIVE Ur Microscopic Review NOT INDICATED Urine Culture Comments NOT INDICATED - Rads (name of study) Testicular doppler US Relevant Findings:: Final report received, EMP independent interpretation of test (small right hydrocele, no testicular torsion) PD Medical Decision Making - ED course ED course: 42-year-old male presents emergency department for testicular pain this is worse on the left than the right. Testicular ultrasound with Doppler was completed and did not reveal any obvious testicular torsion normal and symmetric arterial flow bilaterally. There was a small right hydrocele. Patient has severe testicular pain as well as epididymitis. Urinalysis does not reveal any leukocytes or WBCs. Because of epididymitis we are going to start patient on Bactrim as well as an anti-inflammatory naproxen for the pain. Patient was told to follow-up with primary care provider this week Bactrim sent to his preferred pharmacy. Patient is adamant that he has no concerns of STI, he has 1 sexual partner his he has had no new sexual partners and is confident that that they are both monog amous. Patient given strict ER return precautions and stressed the importance of following up with primary care provider outpatient. Departure - Departure Disposition: 01 Home, Self Care Clinical Impression: Epididymitis Condition: Good Instructions: Epididymitis Dc Prescriptions: Sulfamethox/Trimeth 800/160 [Bactrim Ds] 1 tablet PO BID 10 Days #20 tablet Naproxen 500 mg PO BID #30 cap Comments: Thank you for trusting us with your care. We have completed an ultrasound of your left testicle and there is no torsion. I think to be safe we should treat this as epididymitis, We have started you on an antibiotic called Bactrim here in the emergency department as well as an anti-inflammatory called naproxen. I have sent both of these prescriptions to your preferred pharmacy [facility] in [place]. Make sure that you take the Bactrim every 12 hours for total of 10 days and make sure that you are able to follow-up with your primary care provider next week for further evaluation. If you are developing any difficulty urinating, worsening testicular pain, fevers, chills, or any other concerning symptoms please come back to the emergency department for further eval Forms: PCP List Discharge Date/Time: 05/30/23 14:29
[2023-05-30 13:19] LABS: BILIRUBIN,URINE NEGATIVE (NEGATIVE); CLARITY,URINE CLEAR (CLEAR); GLUCOSE, URINE (UA) NEGATIVE (NEGATIVE); KETONES,URINE (UA) NEGATIVE (NEGATIVE); LEUKOCYTE ESTERASE, URINE NEGATIVE (NEGATIVE); NITRITE,URINE NEGATIVE (NEGATIVE); OCCULT BLOOD,URINE NEGATIVE (NEGATIVE); PROTEIN,URINE NEGATIVE (NEGATIVE); UROBILINOGEN,URINE 0.2 (NORMAL) E.U./dL (NORMAL)
[2023-05-30] MEDS: SULFAMETH/TRIMETH DS 800/160 MG TABLET PO STA (14:19)
[2023-05-30] MEDS: NAPROXEN 250 MG TABLET PO STA (14:19)
--- NOTE | 2023-05-30 15:10 | Ultrasound Report ---
PROCEDURE: Testicle w/Doppler INDICATIONS: left testiculare pain TECHNIQUE: Real-time scanning was performed of the scrotum and testicles, with image documentation. Color and p ulse Doppler interrogation was performed of both testicles. COMPARISON: None. FINDINGS: Right: Testicle is normal in size at 3.5 x 2.2 x 3.0 cm, and homogenous in echotexture. Epididymis is normal in overall size and morphology. Small hydrocele. No varicoceles. Overlying scrotal skin i s normal in thickness. Left: Testicle is normal in size at 3.2 x 3.7 x 2.5 cm, and homogeneous in echotexture. Epididymis is normal in overall size and morphology. No hydrocele. No varicoceles. Overlying scrotal skin is n ormal in thickness. Doppler: Color and pulse Doppler demonstrate normal and symmetric arterial flow in both testicles. IMPRESSION: 1.No cause for patient's pain is identified. 2.Small right hydrocele. Reviewed by: Ignacio Sales MD on 05/30/2023 3:09 PM PST Approved by: Ignacio Sales MD on 05/30/2023 3:09 PM PST Station ID: [id number]
== END 2023-05-30 14:29 | disposition home or self-care (01) ==
LOC: ED 12:20
DX: N45.1 Epididymitis (principal)
CPT/HCPCS: 76870; 81003; 93975; 99284; A9270; 81001; 87086

== ENCOUNTER 2023-06-03 10:04 | Emergency (ER) | payer OTHER ==
--- NOTE | 2023-06-03 12:20 | Ultrasound Report ---
PROCEDURE: Testicle w/Doppler Limited INDICATIONS: significantly worsened pain since seen Fri TECHNIQUE: Real-time scanning was performed of the scrotum and testicles, with image documentation. Color and p ulse Doppler interrogation was performed of both testicles. COMPARISON: Ultrasound testicles 05/30/2023. FINDINGS: Right: Testicle is normal in size at 4.2 x 2.2 x 3.1 cm, and homogenous in echotexture. Epididymis is normal in overall size and morphology. No hydrocele. No varicoceles. Overlying scrotal skin is n ormal in thickness. Left: Testicle is normal in size at 3.9 x 2.3 x 2.6 cm, and homogeneous in echotexture. Epididymis is normal in overall size and morphology. No hydrocele. No varicoceles. Overlying scrotal skin is n ormal in thickness. Doppler: Mildly increased vascularity to the left testicle compared to the right. Normal Doppler flow seen to the epididymides. IMPRESSION: Slightly increased vascularity in the left testicle compared to the right, orchitis is not excluded. No increased vascularity seen to the epididymides. Otherwise, unremarkable exam. Reviewed by: Ignacio Sales MD on 06/03/2023 12:19 PM PST Approved by: Ignacio Sales MD on 06/03/2023 12:19 PM PST Station ID: [id number]
--- NOTE | 2023-06-03 12:26 | ED Physician Documentation ---
PD HPI MALE - Stated complaint Stated Complaint: ,ABD PX - Chief complaint Chief Complaint: Abd Pain - History obtained from History obtained from: Patient - Additional information Additional information: The patient comes to the emergency department chief complaint of left lower quadrant and left testicular pain ongoing for the last several days. The patient was seen several days ago in emergency department at which time he had a testicular ultrasound which was unremarkable. The patient states that he has continued to have pain over the weekend and now his left lower quadrant is hurting. He denies any dysuria. No change in his bowel movements. When the pain kicks up he feels nauseated but otherwise denies nausea and vomiting. No fevers or chills. No injury. He does note that he picked up about a 40 pound bag of belongings 2 days prior to onset of pain but did not feel as though he "pulled anything" at the time. He has not noticed a bulge. No history of hernia. 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 No other complaints at this time. PD PAST MEDICAL HISTORY - Past Medical History Past Medical History: Yes Cardiovascular: None Respiratory: None Neuro: Migraines, Other Endocrine/Autoimmune: None - Past Surgical History Past Surgical History: No - Present Medications Home Medications: Ambulatory Orders Medication Instructions Recorded Confirmed Metoclopramide [Reglan] See Rx Instructions .ROUTE 02/19/23 06/03/23 .COMPLEX PRN Multivit,Calc,Min/FA/K1/Lycop [One See Rx Instructions .ROUTE .COMPLEX 02/19/23 06/03/23 Daily Men's Multivitamin] Rizatriptan Benzoate [Rizatriptan] See Rx Instructions .ROUTE 02/19/23 06/03/23 .COMPLEX PRN Verapamil [Calan] See Rx Instructions .ROUTE .COMPLEX 02/19/23 05/30/23 traZODone [Desyrel] See Rx Instructions .ROUTE .COMPLEX 02/19/23 05/30/23 Naproxen 500 mg PO BID #30 cap 05/30/23 06/03/23 Sulfamethox/Trimeth 800/160 1 tablet PO BID 10 Days #20 tablet 05/30/23 [Bactrim Ds] - Allergies Allergies/Adverse Reactions: Allergies Allergy/AdvReac Type Severity Reaction Status Date / Time No Known Drug Allergies Allergy Verified 06/03/23 10:23 - Social History Does the pt smoke?: No Smoking Status: Never smoker Does the pt drink ETOH?: No Does the pt have substance abuse?: No - Immunizations Immunizations are current?: Yes - POLST Patient has POLST: No PD ED PE NORMAL - Vitals Vital signs reviewed: Yes - General General: Alert and oriented X 3, No acute distress, Well developed/nourished - HEENT HEENT: Atraumatic, PERRL, EOMI, Moist mucous membranes - Neck Neck: Supple, no meningeal sign - Cardiac Cardiac: RRR, No murmur - Respiratory Respiratory: No respiratory distress, Clear bilaterally - Abdomen Abdomen: Soft, Non distended, Other (Moderate focal tenderness to palpation in left pelvis/inferior portion of left lower quadrant. No rebound or guarding.) - Male Male : Other (Very mild tenderness of left testicle. No edema.) - Derm Derm: Warm and dry - Extremities Extremities: No deformity - Neuro Neuro: Alert and oriented X 3 - Psych Psych: Normal mood, Normal affect Results - Vitals Vitals: Oxygen O2 Source Room air - Rads (name of study) Left testicular ultrasound. Relevant Findings:: Final report received, See rad report (No acute findings. Good flow.) CT abd/pelvis Relevant Findings:: Final report received, See rad report (unremarkable) PD Medical Decision Making - ED course Complexity details: reviewed old records, reviewed results, re-evaluated patient, considered differential, d/w patient ED course: The patient was given a dose of Toradol and worked up with repeat ultrasound of the testicles and CT abdomen pelvis. Work-up was negative. I have d/w pt that I cannot be sure what is causing the pt's ongoing pain, but it is possible that he is in the early stages of soft tissue compromise leading to hernia formation. We have discussed that until or unless that becomes evident, perhaps the best plan is for him to pursue follow-up with urology. I have given him contact information for Dr. Rodarte to this end. We have discussed the need for follow- up, as well as the usual indications for return. Departure - Departure Disposition: 01 Home, Self Care Clinical Impression: Pelvic pain in male, Testicular pain, left Condition: Stable Instructions: ED Abdominal Pain Unkn Cause Male, ED Testicular Pain [facility] Follow-Up: Jesus Rodarte MD [Provider Admit Priv/Credential] - Comments: Both your ultrasound and your CT scan look good today. It is not clear exactly what is causing your pain, although as we discussed, you could be on the early end of forming a hernia and it is just not able to be visualized yet. Is also possible that you strained the area doing some the other normal activities like picking up your child or picking up your bags. At this point in time, use follow-up with your primary doctor. You may also follow-up with our urologist, as well. Please call make the next available appointment. You may continue to take ibuprofen and Tylenol as needed. Forms: PCP List Discharge Date/Time: 06/03/23 15:53
[2023-06-03] MEDS: KETOROLAC 60 MG/2 ML VIAL IM STA (12:55)
[2023-06-03] MEDS: predniSONE 20 MG TABLET PO STA (12:55)
--- NOTE | 2023-06-03 14:45 | CT Report ---
PROCEDURE: Abdomen/Pelvis WO INDICATIONS: LLQ pain radiating to testicle, neg US TECHNIQUE: A CT scan of the abdomen and pelvis was performed without the use of intravenous contrast. Images we re recorded and evaluated at appropriate window settings. Reformats: coronal and sagittal. For radiat ion dose reduction, the following was used: automated exposure control, adjustment of mA and/or kV ac cording to patient size. COMPARISON: None. FINDINGS: Image quality: Diagnostic. Lower chest: Unremarkable. Liver: No contour-deforming mass. Gallbladder and biliary tree: Unremarkable. Spleen: No splenomegaly. Pancreas: No pancreatic ductal dilation. Adrenals: No adrenal nodule. Kidneys and ureters: No hydronephrosis. No renal cystic lesion which requires follow up. No solid mas s. Stomach, bowel and peritoneum: No bowel distension. No pathologic free fluid. Lymph nodes: No central or retroperitoneal adenopathy. Vessels: No infrarenal aortic aneurysm. PELVIS Reproductive organs: Unremarkable Bladder: No wall thickness, accounting for underdistention. Pelvic lymph nodes: No pelvic adenopathy by size criteria. Bones: No aggressive osseous abnormality. Other: No significant ventral or inguinal hernia. Mild hiatal hernia. IMPRESSION: No renal, ureteral or bladder calculi. No visualized cause of pain. Reviewed by: Mila Prajapati MD on 06/03/2023 2:44 PM PST Approved by: Mila Prajapati MD on 06/03/2023 2:44 PM PST Station ID: [id number]
[2023-06-03 15:54] VITALS: BP 112/76; O2SAT 98
== END 2023-06-03 15:53 | disposition home or self-care (01) ==
LOC: ED 10:04
DX: R10.2 Pelvic and perineal pain (principal); N50.812 Left testicular pain
CPT/HCPCS: 74176; 76870; 93976; 96372; 99283; 99284; J7512

== ENCOUNTER 2023-08-12 09:54 | Emergency (ER) | payer OTHER ==
[2023-08-12 10:17] VITALS: O2SAT 100
--- NOTE | 2023-08-12 10:25 | ED Physician Documentation ---
PD HPI ABD PAIN - Stated complaint Stated Complaint: SOA,ABD PX - Chief complaint Chief Complaint: Resp - History obtained from History obtained from: Patient - History of Present Illness Timing - onset: How many days ago (5) Timing - duration: Days (5) Timing - details: Abrupt onset, Still present Quality: Sharp, Pain Location: Epigastric, LUQ Radiation: Chest Worsened by: Eating Associated symptoms: Nausea. No: Vomiting, Diarrhea, Melena, Hematochezia Recently seen: Clinic (seen PCP at [facility] yesterday and had Doxycycline added for the continued dyspnea and chest pain, presume anchored to the pneumonia diagnosis.), Surgery (had colonoscpy with polyp biopsy and EGD with stomach biopsies 5 days ago, witho onset of notable chest pain, fever, nausea and pain with swallowing that evening and has persisted. Seem back at [facility] with these symptoms day after and had CXR showing pneumonia, per pt report. Rx augmentin.) Review of Systems Constitutional: reports: Fever (temp to 104 the evening of the procedures but only chills feeling since without noted fevers. No URI symptoms preceding nor since procedures.), Chills Nose: denies: Rhinorrhea / runny nose, Congestion Throat: denies: Sore throat Cardiac: reports: Chest pain / pressure Respiratory: reports: Dyspnea. denies: Cough GI: reports: Abdominal Pain, Nausea. denies: Vomiting, Constipation, Diarrhea, Bloody / black stool PD PAST MEDICAL HISTORY - Past Medical History Past Medical History: Yes Cardiovascular: None Respiratory: None Neuro: Migraines, Other Endocrine/Autoimmune: None GI: GERD : None HEENT: None Psych: None Musculoskeletal: None Derm: None - Past Surgical History Past Surgical History: No General: Colonoscopy, EGD - Present Medications Home Medications: Ambulatory Orders Medication Instructions Recorded Confirmed Metoclopramide [Reglan] 10 mg ORAL Q6HR PRN 02/19/23 08/12/23 Rizatriptan Benzoate [Rizatriptan] 5 mg ORAL DAILY PRN 02/19/23 08/12/23 Verapamil [Calan] 80 mg ORAL BIDAC 02/19/23 08/12/23 Albuterol Sulfate [Proair 3 puffs IH QID 10 Days #1 each 08/12/23 Respiclick] Amox/Clav 875/125 [Augmentin 1 tablet PO Q12H 08/12/23 08/12/23 875/125 Tab] Docusate Sodium 100Mg Capsule 100 mg PO DAILY #15 cap 08/12/23 [Colace 100Mg Capsule] Doxycycline [Vibramycin] 100 mg PO BID 08/12/23 08/12/23 HYDROcod/ACETAM 5/325 [[place] 5/325] 1 ea PO Q6H PRN #14 tablet 08/12/23 Ondansetron Odt [Zofran] 4 mg TL Q6H PRN #15 tablet 08/12/23 Sucralfate [Carafate] 1 gm PO ACHS 7 Days #280 ml 08/12/23 - Allergies Allergies/Adverse Reactions: Allergies Allergy/AdvReac Type Severity Reaction Status Date / Time No Known Drug Allergies Allergy Verified 08/12/23 10:02 - Social History Does the pt smoke?: No Smoking Status: Never smoker Does the pt drink ETOH?: No Does the pt have substance abuse?: No - Immunizations Immunizations are current?: Yes - POLST Patient has POLST: No Results - Vitals Vitals: Oxygen O2 Source Room air - Labs Labs: Laboratory Tests 08/12/23 08/12/23 08/12/23 11:07 11:07 12:12 WBC 6.9 RBC 6.09 Hgb 17.0 Hct 49.9 MCV 81.9 MCH 27.9 MCHC 34.1 RDW 12.5 Plt Count 284 MPV 10.0 Neut # (Auto) 4.7 Lymph # (Auto) 1.5 [place] # (Auto) 0.5 Eos # (Auto) 0.1 Baso # (Auto) 0.1 Absolute Nucleated RBC 0.00 Nucleated RBC % 0.0 Sodium 137 Potassium 4.3 Chloride 104 Carbon Dioxide 27 Anion Gap 6.0 BUN 12 Creatinine 1.0 Estimated GFR (MDRD) 83 L Glucose 108 H Calcium 10.6 H Magnesium 1.8 Total Bilirubin 0.8 AST 20 ALT 30 Alkaline Phosphatase 97 Total Protein 8.2 Albumin 4.7 Globulin 3.5 Albumin/Globulin Ratio 1.3 Lipase 18 Nasal Adenovirus (PCR) NOT DETECTED Nasal B. parapertussis DNA (PCR) NOT DETECTED Nasal Coronavir 229E PCR NOT DETECTED Nasal Coronavir HKU1 PCR NOT DETECTED Nasal Coronavir NL63 PCR NOT DETECTED Nasal Coronavir OC43 PCR NOT DETECTED Nasal Enterovir/Rhinovir PCR NOT DETECTED Nasal Influenza B PCR NOT DETECTED Nasal Influenza A PCR NOT DETECTED Nasal Parainfluen 1 PCR NOT DETECTED Nasal Parainfluen 2 PCR NOT DETECTED Nasal Parainfluen 3 PCR NOT DETECTED Nasal Parainfluen 4 PCR NOT DETECTED Nasal RSV (PCR) NOT DETECTED Nasal B.pertussis DNA PCR NOT DETECTED Nasal C.pneumoniae (PCR) NOT DETECTED Russ Human Metapneumo PCR NOT DETECTED Nasal M.pneumoniae (PCR) NOT DETECTED Nasal SARS-CoV-2 (PCR) NOT DETECTED PD Medical Decision Making - ED course Complexity details: reviewed results (CT chest and abd done to val for potential perforations of esophabus/stomach or descending intestine (so both chest and abd/pelvis done)), considered differential, d/w patient ED course: The patient has been having ongoing left abdominal pain for which she underwent an EGD and colonoscopy 5 days ago. This was done at [facility]. The patient reports she had a polypectomy with the colonoscopy and also biopsies of the stomach with the EGD. He was having abdominal pain with some nausea and also epigastric and lower sternal chest pain after the procedure and that evening. It continued into the next day. He was transported by her [facility] [place] [facility] the day after the procedure with the pains noted and was transferred by EMS to [facility]. He states there he had an x-ray and some blood tests and EKG. He was diagnosed with pneumonia and placed on an antibiotic. He continued with the above symptoms with pain on eating and a feeling of fever and chills. [facility] with still persisting shortness of breath. Had a blood count noting elevated white count still. He was placed on a second antibiotic. The first 1 had been Augmentin and the second 1 started yesterday was doxycycline. This morning he felt more epigastric pain nausea and had couple of episodes of vomiting without blood. No diarrhea and no melena. He has persisting feeling of fever and chills, dyspnea without cough per se and mild sore throat but no other URI symptoms. He states he was tested for respiratory viral panel at [facility] ER 4 days ago that was negative. My concern with his persisting pain in the lower esophageal and chest area would be undiagnosed perforation with mediastinitis developing. Also similar with the abdominal pain with the recent colonoscopic biopsy of a polyp, concern would be perforation and free air etc. With this in mind at this point I felt CT of the chest and abdomen was appropriate. Shared decision with the patient. Meanwhile he was given IV fluids and antiemetic as well as some pain medicine with improvement in symptoms of pain and nausea. He was given albuterol nebulizer with improvement in his feeling of dyspnea. The CT of the chest shows some scattered small atelectatic areas but no obvious infiltrate or pneumonia. No signs of mediastinal perforation. There was esophageal inflammation with a patulous area. The CT of the abdomen did not show any acute abnormalities. At this point the patient is having less pain and somewhat improved breathing. No signs of more significant cause such as esophagitis or perforation nor any lower abdominal free air. We can treat with pain medicine and sacral fate as well as antiemetics. Without evidence of pneumonia at this point and he has been on the Augmentin for 5 days anyway, I think he can stop the antibiotics. Some of the nausea and vomiting this morning may relate to the doxycycline added yesterday. I do not see an indication for it at this point based on the CT findings. Consider likely some inadvertent aspiration during the EGD with pneumonitis, and better treatment at this point would be MDI and deep breathing. The patient will be discharged with duty note for today and 2 more days. I will add prescriptions for Carafate and Zofran and hydrocodone. He is to do soft mechanical diet and bland food for the next several days. Blood test did show a normal white count. Liver enzymes are normal. Lipase is not elevated. These were other considerations of a secondary pancreatitis or such from the scope. No evidence for that on CT T or blood test. Basic electrolytes and blood sugar are normal as well. No signs of acute kidney injury. Departure - Departure Disposition: 01 Home, Self Care Clinical Impression: Chest pain, History of esophagogastroduodenoscopy (EGD), Left sided abdominal pain, S/P colonoscopic polypectomy, Nausea and vomiting Condition: Stable Record reviewed to determine appropriate education?: Yes Follow-Up: EMANUEL YAO DO [Primary Care Provider] - Prescriptions: Sucralfate [Carafate] 1 gm PO ACHS 7 Days #280 ml Docusate Sodium 100Mg Capsule [Colace 100Mg Capsule] 100 mg PO DAILY #15 cap HYDROcod/ACETAM 5/325 [[place] 5/325] 1 ea PO Q6H PRN #14 tablet PRN Reason: Pain Albuterol Sulfate [Proair Respiclick] 3 puffs IH QID 10 Days #1 each Ondansetron Odt [Zofran] 4 mg TL Q6H PRN #15 tablet PRN Reason: Nausea / Vomiting Comments: Your CT scans show some mild atelectasis scattered in the lungs. The meaning of this is not fully expanded lung tissue and likely relates to the hurting with breathing. They do not see a pneumonia per se. No signs of perforation or leakage from the esophagus or stomach from the recent procedure and biopsies. There is seen in the area of swelling at the lower esophagus which likely represents the pain with breathing and eating. I would do soft mechanical food and bland food over the next several days or so to less irritate that area. I think it is okay to stop your antibiotics. The second 1 added may be causing some of the stomach symptoms today. Without signs of pneumonia on x-ray/CT scan, I think it is reasonable to discontinue them. The duration of the first antibiotic (amoxicillin still in clavulanic acid) would have been 5 days only recommendation for pneumonia anyway. To help with your breathing I would add an albuterol inhaler 2 to 3 puffs 4 times daily for the next week. Regarding the esophageal inflammation, it will go down with time. We can add some sucralfate to help coat the esophagus periodically through the day. Add Tylenol every 4 to 6 hours if needed for pain. Add hydrocodone every 6 hours if needed for worse pain. Stool softener daily. Forms: PCP List, Activity restrictions Discharge Date/Time: 08/12/23 13:42
[2023-08-12] MEDS ORDERED: iohexoL-300 100 ML VIAL ONE (11:03)
[2023-08-12] MEDS: ALBUTEROL NEB 2.5 MG/3 ML INH STA (11:08)
[2023-08-12] MEDS: MAG HYDROX/AL HYDROX/SIMETH 30 ML UDC PO STA (11:11)
[2023-08-12] MEDS: ONDANSETRON 4 MG/2 ML VIAL IVP STA (11:11)
[2023-08-12] MEDS: KETOROLAC 15 MG/ML VIAL IVP STA (11:11)
[2023-08-12] MEDS: FAMOTIDINE 20 MG/2 ML VIAL IVP STA (11:11)
[2023-08-12] MEDS: HYDROmorphone 0.5 MG/0.5 ML SYRINGE IVP STA (11:12)
[2023-08-12] MEDS: SODIUM CHLORIDE 0.9% 1,000 ML IV STA (11:12)
[2023-08-12 11:15] LABS: BASOPHILS # (AUTO) 0.1 10^3/uL (0.0-0.1); BASOPHILS % (AUTO) 0.7 %; EOSINOPHILS # (AUTO) 0.1 10^3/uL (0.0-0.7); EOSINOPHILS % (AUTO) 1.3 %; HCT - HEMATOCRIT 49.9 % (42.0-52.0); LYMPHOCYTES # (AUTO) 1.5 10^3/uL (1.5-3.5); LYMPHOCYTES % (AUTO) 22.2 %; MEAN CORPUSCULAR HEMOGLOBIN 27.9 pg (27.0-31.0); MEAN CORPUSCULAR HGB CONC 34.1 g/dL (32.0-36.0); MEAN CORPUSCULAR VOLUME 81.9 fL (80.0-94.0); MONOCYTES # (AUTO) 0.5 10^3/uL (0.0-1.0); MONOCYTES % (AUTO) 6.6 %; NEUTROPHILS # (AUTO) 4.7 10^3/uL (1.5-6.6); NEUTROPHILS % (AUTO) 68.8 %; PLT - PLATELET COUNT 284 10^3/uL (130-450); RED BLOOD COUNT 6.09 10^6/uL (4.70-6.10); RED CELL DISTRIBUTION WIDTH 12.5 % (12.0-15.0); WHITE BLOOD COUNT 6.9 x10^3/uL (4.8-10.8)
[2023-08-12 11:27] LABS: ALBUMIN 4.7 g/dL (3.2-5.5); ALBUMIN/GLOBULIN RATIO 1.3 (1.0-2.2); BILIRUBIN,TOTAL 0.8 mg/dL (0.2-1.0); CALCIUM 10.6 mg/dL (8.5-10.3); MAGNESIUM 1.8 mg/dL (1.7-2.3); POTASSIUM 4.3 mmol/L (3.5-4.5); TOTAL PROTEIN 8.2 g/dL (6.4-8.9)
--- NOTE | 2023-08-12 12:13 | CT Report ---
PROCEDURE: Chest W INDICATIONS: epigastric/chest pain post EGD 5 d ago CONTRAST: Omni 300 100ml TECHNIQUE: After the administration of intravenous contrast, a CT scan of the chest was performed. Images were recorded and evaluated at appropriate window settings. Reformats: axial MIP of the chest, coronal and sagittal. For radiation dose reduction, the following was used: automated exposure control, adjustme nt of mA and/or kV according to patient size. COMPARISON: None. FINDINGS: Image quality: Diagnostic Lungs and pleura:Scattered scarring and atelectasis. No dense airspace disease or pleural effusions. No solid nodules/mass requiring followup per current guidelines if patient is not high risk and has n o primary malignancy. Micronodules, for example right lung apex 01/2620 follow-up in one year with op tional chest CT if the patient is considered high risk. Benign calcified granulomas are also seen. Mediastinum, heart, and esophagus: There is mild mid and distal esophageal wall thickening. Patient r ecently had endoscopy. The distal esophagus is mildly patulous. No pneumomediastinum. Normal heart si ze. No pathologic lymph nodes by size criteria. Calcified lymph nodes likely from prior granulomatous process at the left hilum. Chest wall and thyroid: Unremarkable Upper abdomen: Separately dictated Bones: No acute or suspicious osseous finding. IMPRESSION: No acute thoracic abnormality. No significant mediastinal fluid. No pneumomediastinum identified. Mild esophageal wall thickening and patulous appearance, nonspecific CT appearance. Patient had recen t endoscopy. Other findings as above. Abdominal findings separately dictated. Reviewed by: Michael Short MD on 08/12/2023 12:11 PM PDT Approved by: Michael Short MD on 08/12/2023 12:11 PM PDT Station ID: [id number]
--- NOTE | 2023-08-12 12:18 | CT Report ---
PROCEDURE: Abdomen/Pelvis W INDICATIONS: left to upper abd pain s/p colonscopy 5 d ago CONTRAST: Omni 300 100ml TECHNIQUE: After the administration of intravenous contrast, a CT scan of the abdomen and pelvis was performed. Images were recorded and evaluated at appropriate window settings. Reformats: coronal and sagittal. F or radiation dose reduction, the following was used: automated exposure control, adjustment of mA and /or kV according to patient size. COMPARISON: 06/03/2023 FINDINGS: Image quality: Diagnostic Lower chest: Separately dictated Liver: Liver appears unremarkable Gallbladder and biliary system: Unremarkable, nondilated Pancreas: No ductal dilation Spleen: Upper limit of normal at 13 cm Adrenals: No discrete nodules Kidneys: No solid mass or hydronephrosis Vessels and lymph nodes: The main portal vein is patent. No pathologic lymph nodes by size criteria. No abdominal aortic aneurysm. Bowel and peritoneum: No evidence of small bowel obstruction. No pathologic ascites. The appendix is nondilated. Body wall: Tiny fat-containing umbilical hernia Pelvis: Bladder is unremarkable. Heterogeneous enhancement of the prostate is nonspecific and not wel l evaluated on CT. Bones: No acute or suspicious osseous finding. Mild degenerative changes are seen. IMPRESSION: No evidence of perforation in the abdomen. No bowel obstruction. No abscess. Other findings as above. Chest findings are separately dictated. Reviewed by: Michael Short MD on 08/12/2023 12:16 PM PDT Approved by: Michael Short MD on 08/12/2023 12:16 PM PDT Station ID: [id number]
[2023-08-12 12:20] VITALS: BP 129/90
[2023-08-12] MEDS: SUCRALFATE 1 GM/10 ML UDC PO STA (13:06)
[2023-08-12] MEDS: DEXAMETHASONE 10 MG/ML VIAL IVP STA (13:06)
[2023-08-12 13:15] LABS: B. PARAPERTUSSIS- RESP PCR PAN NOT DETECTED; B. PERTUSSIS- RESP PCR PANEL NOT DETECTED; C. PNEUMONIAE- RESP PCR PANEL NOT DETECTED; CORONAVIRUS 229E-RESP PCR NOT DETECTED; CORONAVIRUS HKU1-RESP PCR NOT DETECTED; CORONAVIRUS NL63-RESP PCR NOT DETECTED; CORONAVIRUS OC43-RESP PCR NOT DETECTED; HUMAN METAPNEUMOVIRUS NOT DETECTED; INFLUENZA A- RESP PCR PANEL NOT DETECTED; INFLUENZA B - RESP PCR PANEL NOT DETECTED; M. PNEUMONIAE- RESP PCR PANEL NOT DETECTED; PARAINFLUENZA VIRUS 1 NOT DETECTED; PARAINFLUENZA VIRUS 2 NOT DETECTED; PARAINFLUENZA VIRUS 3 NOT DETECTED; PARAINFLUENZA VIRUS 4 NOT DETECTED; RHINOVIRUS/ENTEROVIRUS NOT DETECTED; RSV- RESP PCR PANEL NOT DETECTED; SARS-CoV-2 -RESP PCR PANEL NOT DETECTED
[2023-08-12] MEDS: ALBUTEROL 1 PUFF INH STA (13:18)
[2023-08-12] MEDS: iohexoL-300 100 ML VIAL IVP ONE (13:28)
== END 2023-08-12 13:42 | disposition home or self-care (01) ==
LOC: ED 09:54
DX: R10.12 Left upper quadrant pain (principal); R07.89 Other chest pain; R11.2 Nausea with vomiting, unspecified; Z98.890 Other specified postprocedural states
CPT/HCPCS: 36415; 71260; 74177; 80053; 83690; 83735; 85025; 87633; 94640; 94664; 96361; 96374; 96375; 99284; 99285; A9270; J1170; Q9967

== ENCOUNTER 2023-09-01 15:21 | Emergency (ER) | payer OTHER ==
--- NOTE | 2023-09-01 15:43 | ED Physician Documentation ---
PD HPI ABD PAIN - Stated complaint Stated Complaint: SOA,MIGRAINE,LT ABD PX - Chief complaint Chief Complaint: Abd Pain - History obtained from History obtained from: Patient - History of Present Illness Timing - onset: Today (early this morning.) Timing - duration: Hours Timing - details: Gradual onset, Still present Quality: Cramping, Aching, Pain Location: Epigastric, LLQ Radiation: Lower back. No: Chest Associated symptoms: Nausea, Vomiting. No: Fever, Diarrhea, Constipation, Dysuria, Chest pain Similar symptoms before: No diagnosis (has had evaluation of left abd pain, with recent colonoscopy and EGD the day of prior ED visit.) Review of Systems Constitutional: denies: Fever, Chills Nose: denies: Rhinorrhea / runny nose, Congestion Throat: denies: Sore throat Respiratory: denies: Cough GI: reports: Abdominal Pain (upper abd pain with tensdenwess. BRADLEY Hds left lower abd pain in the past with eval by GI,), Nausea, Vomiting PD PAST MEDICAL HISTORY - Past Medical History Past Medical History: Yes Cardiovascular: None Respiratory: None Neuro: Migraines, Other Endocrine/Autoimmune: None GI: GERD : None HEENT: None Psych: None Musculoskeletal: None Derm: None - Past Surgical History Past Surgical History: No General: Colonoscopy, EGD - Present Medications Home Medications: Ambulatory Orders Medication Instructions Recorded Confirmed Metoclopramide [Reglan] 10 mg ORAL Q6HR PRN 02/19/23 08/12/23 Rizatriptan Benzoate [Rizatriptan] 5 mg ORAL DAILY PRN 02/19/23 08/12/23 Verapamil [Calan] 80 mg ORAL BIDAC 02/19/23 08/12/23 Albuterol Sulfate [Proair 3 puffs IH QID 10 Days #1 each 08/12/23 Respiclick] Amox/Clav 875/125 [Augmentin 1 tablet PO Q12H 08/12/23 08/12/23 875/125 Tab] Docusate Sodium 100Mg Capsule 100 mg PO DAILY #15 cap 08/12/23 [Colace 100Mg Capsule] Doxycycline [Vibramycin] 100 mg PO BID 08/12/23 08/12/23 HYDROcod/ACETAM 5/325 [[place] 5/325] 1 ea PO Q6H PRN #14 tablet 08/12/23 Ondansetron Odt [Zofran] 4 mg TL Q6H PRN #15 tablet 08/12/23 Sucralfate [Carafate] 1 gm PO ACHS 7 Days #280 ml 08/12/23 Famotidine [Pepcid] 20 mg PO DAILY #20 tablet 09/01/23 HYDROcod/ACETAM 5/325 [[place] 5/325] 1 ea PO Q6H PRN #18 tablet 09/01/23 Metoclopramide [Reglan] 10 mg PO Q6H PRN #30 tablet 09/01/23 dexAMETHasone [Decadron] 4 mg PO DAILY #5 tablet 09/01/23 - Allergies Allergies/Adverse Reactions: Allergies Allergy/AdvReac Type Severity Reaction Status Date / Time No Known Drug Allergies Allergy Verified 09/01/23 15:26 - Social History Does the pt smoke?: No Smoking Status: Never smoker Does the pt drink ETOH?: No Does the pt have substance abuse?: No - Immunizations Immunizations are current?: Yes - POLST Patient has POLST: No PD ED PE NORMAL - Vitals Vital signs reviewed: Yes - General General: Alert and oriented X 3, Well developed/nourished - Neck Neck: Supple, no meningeal sign, No adenopathy - Cardiac Cardiac: No murmur. No: RRR (tachycardic but regular. ) - Respiratory Respiratory: Clear bilaterally - Abdomen Abdomen: Soft, Non tender Results - Vitals Vitals: Vital Signs - 24 hr 09/01/23 09/01/23 15:26 18:29 Temperature 37.7 C Heart Rate 110 H 78 Respiratory 24 16 Rate Blood Pressure 142/89 H 121/78 O2 Saturation 100 98 Oxygen O2 Source Room air - Labs Labs: Laboratory Tests 09/01/23 09/01/23 09/01/23 15:30 15:50 15:50 WBC 6.8 RBC 5.55 Hgb 15.6 Hct 44.9 MCV 80.9 MCH 28.1 MCHC 34.7 RDW 12.7 Plt Count 192 MPV 12.1 H Neut # (Auto) 5.5 Lymph # (Auto) 0.6 L [place] # (Auto) 0.5 Eos # (Auto) 0.0 Baso # (Auto) 0.0 Absolute Nucleated RBC 0.00 Nucleated RBC % 0.0 Manual Slide Review Indicated Platelet Estimate NORMAL (130-450,000) Platelet Morphology NORMAL ERMA RBC Morph Micro Appear NORMAL APPEARANCE Sodium 136 Potassium 3.6 Chloride 104 Carbon Dioxide 21 Anion Gap 11.0 BUN 11 Creatinine 1.1 Estimated GFR (MDRD) 74 L Glucose 94 Calcium 9.9 Total Bilirubin 1.1 H AST 23 ALT 31 Alkaline Phosphatase 92 Total Protein 7.0 Albumin 4.5 Globulin 2.5 Albumin/Globulin Ratio 1.8 Lipase 14 Urine Color YELLOW Urine Clarity CLEAR Urine pH 6.0 Ur Specific [place] 1.020 Urine Protein NEGATIVE Urine Glucose (UA) NEGATIVE Urine Ketones NEGATIVE Urine Occult Blood NEGATIVE Urine Nitrite NEGATIVE Urine Bilirubin NEGATIVE Urine Urobilinogen 0.2 (NORMAL) Ur Leukocyte Esterase NEGATIVE Ur Microscopic Review NOT INDICATED Urine Culture Comments NOT INDICATED PD Medical Decision Making - ED course Complexity details: reviewed old records (Recently seen couple of weeks ago after endoscopy with postprocedure increased abdominal and chest pain. CT scan at that time did not show any acute complications from the scope. Treated with proton pump inhibitor and Carafate. He states the Carafate did not seem to help much.), reviewed results, re-evaluated patient (having improved symptoms with notable improvement in abd/backpain, quite a bit improved migraine.), considered differential (The patient has a plethora of complaints including migraine headache onset today that has been recurrent over the last several days, upper abdominal pain consistent with gastritis/ulcer that has been persistent, low back pain that is chronic but has exacerbated recently. Also poor sleep and appetit), d/w patient Reviewed Lab Results: chemistires are good. LFTs and lipase as well. He had imaging without acute finding just week ago after his EGD and hd worse pain. I did not see need for imaging again today. Departure - Departure Disposition: 01 Home, Self Care Clinical Impression: Migraine, Epigastric abdominal pain, Acute exacerbation of chronic low back pain, Left lower quadrant abdominal pain Condition: Stable Record reviewed to determine appropriate education?: Yes Instructions: ED Headache Migraine, ED Abdominal Pain Unkn Cause Male Follow-Up: [facility] [Provider Group] Prescriptions: dexAMETHasone [Decadron] 4 mg PO DAILY #5 tablet HYDROcod/ACETAM 5/325 [[place] 5/325] 1 ea PO Q6H PRN #18 tablet PRN Reason: Pain Famotidine [Pepcid] 20 mg PO DAILY #20 tablet Metoclopramide [Reglan] 10 mg PO Q6H PRN #30 tablet PRN Reason: Nausea / Vomiting Comments: Regarding your migraine headache, we did give a dose of Decadron steroid IV and hopefully that will curtail recurring headaches over the next few days. If you are having recurring ones, you could extend the Decadron steroid daily for several more days. In addition use your migraine medications with nausea medicine and the Maxalt and/or Fioricet. Add hydrocodone/acetaminophen if needed for worse headache. Regarding your stomach pain, continue with your Nexium and add famotidine daily for the next few weeks. Use some antacids such as Maalox or Mylanta few times daily as well. Ramsay food. Avoid any NSAIDs or other irritants such as caff eine or alcohol. Try to have fairly bland food as well. For this as well, nausea medicine if needed and add the hydrocodone if needed for worse pains. Regarding the lower left abdominal pain, again added pain medicine if needed. Follow-up with your primary care over the next several days, call for an appointment. Return to the ER if needed. I sent new prescriptions to preferred pharmacy. I am prescribing a short course of narcotic pain medication for you. These are potentially dangerous and addictive medications that should be used carefully. These medications may constipate you. Take an [id number] stool softener such as docusate twice daily with plenty of water while taking these medications. If you go 24 hours without a bowel movement, take [id number] MiraLAX, per package instructions. Do not drink or drive while taking these medications. If you received narcotic or sedating medications while in the emergency department do not drive for 24 hours. Store this medication in a safe, secure place and out of reach of children. It is a violation of federal law to give or sell this medication to another person or to use in a manner other than prescribed. The ED will not refill narcotic prescriptions, including prescriptions lost or stolen. You can dispose of unwanted medications at the [facility]'s office or at several pharmacies such as [facility]. Off work for the next 2 to 3 days. Forms: PCP List, Activity restrictions Discharge Date/Time: 09/01/23 18:29
[2023-09-01 16:51] LABS: ALBUMIN 4.5 g/dL (3.2-5.5); ALBUMIN/GLOBULIN RATIO 1.8 (1.0-2.2); BASOPHILS % (AUTO) 0.6 %; BILIRUBIN,TOTAL 1.1 mg/dL (0.2-1.0); CALCIUM 9.9 mg/dL (8.5-10.3); CREATININE 1.1 mg/dL (0.6-1.3); EOSINOPHILS % (AUTO) 0.6 %; HCT - HEMATOCRIT 44.9 % (42.0-52.0); HGB - HEMOGLOBIN 15.6 g/dL (14.0-18.0); LYMPHOCYTES # (AUTO) 0.6 10^3/uL (1.5-3.5); LYMPHOCYTES % (AUTO) 9.5 %; MEAN CORPUSCULAR HEMOGLOBIN 28.1 pg (27.0-31.0); MEAN CORPUSCULAR HGB CONC 34.7 g/dL (32.0-36.0); MEAN CORPUSCULAR VOLUME 80.9 fL (80.0-94.0); MEAN PLATELET VOLUME 12.1 fL (7.4-11.4); MONOCYTES # (AUTO) 0.5 10^3/uL (0.0-1.0); MONOCYTES % (AUTO) 7.8 %; NEUTROPHILS # (AUTO) 5.5 10^3/uL (1.5-6.6); NEUTROPHILS % (AUTO) 81.4 %; POTASSIUM 3.6 mmol/L (3.5-4.5); RED BLOOD COUNT 5.55 10^6/uL (4.70-6.10); RED CELL DISTRIBUTION WIDTH 12.7 % (12.0-15.0); WHITE BLOOD COUNT 6.8 x10^3/uL (4.8-10.8)
[2023-09-01 16:54] LABS: SLIDE REVIEW? Indicated
[2023-09-01] MEDS: FAMOTIDINE 20 MG/2 ML VIAL IVP STA (17:07)
[2023-09-01] MEDS: KETOROLAC 15 MG/ML VIAL IVP STA (17:07)
[2023-09-01] MEDS: SUCRALFATE 1 GM/10 ML UDC PO STA (17:07)
[2023-09-01] MEDS: SODIUM CHLORIDE 0.9% 1,000 ML IV STA (17:08)
[2023-09-01] MEDS: HYDROmorphone 0.5 MG/0.5 ML SYRINGE IVP STA (17:08)
[2023-09-01] MEDS: DROPERIDOL 5 MG/2 ML VIAL IVP STA (17:15)
[2023-09-01 17:27] LABS: RBC MORPHOLOGY (MULTIPLE) NORMAL APPEARANCE (NORMAL)
[2023-09-01 17:28] LABS: PLATELET ESTIMATE, MANUAL NORMAL (130-450,000) (NORMAL); PLATELET MORPHOLOGY NORMAL APP (NORMAL)
[2023-09-01 17:29] LABS: PLT - PLATELET COUNT 192 10^3/uL (130-450)
[2023-09-01 18:07] LABS: BILIRUBIN,URINE NEGATIVE (NEGATIVE); GLUCOSE, URINE (UA) NEGATIVE (NEGATIVE); KETONES,URINE (UA) NEGATIVE (NEGATIVE); LEUKOCYTE ESTERASE, URINE NEGATIVE (NEGATIVE); NITRITE,URINE NEGATIVE (NEGATIVE); OCCULT BLOOD,URINE NEGATIVE (NEGATIVE); PROTEIN,URINE NEGATIVE (NEGATIVE); UROBILINOGEN,URINE 0.2 (NORMAL) E.U./dL (NORMAL)
[2023-09-01 18:10] LABS: CLARITY,URINE CLEAR (CLEAR)
[2023-09-01] MEDS: DEXAMETHASONE 10 MG/ML VIAL IVP STA (18:31)
[2023-09-01 18:36] VITALS: BP 121/78; O2SAT 98
== END 2023-09-01 18:29 | disposition home or self-care (01) ==
LOC: ED 15:21
DX: R10.32 Left lower quadrant pain (principal); R10.13 Epigastric pain; G43.909 Migraine, unspecified, not intractable, without status migrainosus; M54.50 Low back pain, unspecified; G89.29 Other chronic pain
CPT/HCPCS: 36415; 80053; 81003; 83690; 85025; 96374; 96375; 99284; 99285; A9270; J1170; 81001; 87086

== ENCOUNTER 2023-09-15 17:09 | Outpatient (CLI) | payer OTHER ==
[2023-09-15] MEDS ORDERED: iohexoL-300 100 ML VIAL ONE (17:13)
[2023-09-15] MEDS: iohexoL-300 100 ML VIAL IVP ONE (17:34)
--- NOTE | 2023-09-16 09:24 | CT Report ---
PROCEDURE: Angio Abdomen/Pelvis INDICATIONS: SPLENOMEGALY CONTRAST: 100ml [id number] TECHNIQUE: After the administration of intravenous contrast, 2.5 mm thick sections acquired from the diaphragm t o the symphysis. 10 mm maximum-intensity projection (MIP) reformats were then acquired. For radiati on dose reduction, the following was used: automated exposure control, adjustment of mA and/or kV ac cording to patient size. COMPARISON: CT abdomen and pelvis dated 08/12/2023 FINDINGS: Image quality: Excellent. Aorta: Widely patent Mesenteric arteries: Celiac trunk, superior and inferior mesenteric arteries appear patent. Right pelvic arteries: Widely patent Left pelvic arteries: Widely patent Portal vein and splenic vein: Widely patent Extravascular soft tissues: Lung bases are clear. Heart size is normal. Liver and is normal in siz e and enhancement. Mild splenomegaly, measuring 13.6 cm. Gallbladder is unremarkable without wall th ickening or calcified stones.. Biliary system is non dilated. Pancreas enhances normally. No adren al nodules. Kidneys are normal in size and enhancement, without hydronephrosis. Non opacified bowel loops are normal in wall thickness and caliber. No free fluid or air. No retroperitoneal or mesent duong adenopathy. No ventral hernias. No suspicious bony lesions. No vertebral body compression fra ctures. IMPRESSION: 1. Widely patent portal venous system. 2. Mild splenomegaly. 3. Widely patent aorta and its attachments. 4. Otherwise unremarkable study. Reviewed by: Rocky Mcnamara MD on 09/16/2023 9:22 AM PDT Approved by: Rocky Mcnamara MD on 09/16/2023 9:22 AM PDT Station ID: [id number]
== END 2023-09-15 17:10 | disposition home or self-care (01) ==
LOC: DI 17:09
PROVIDERS: ATTEND Student in an Organized Health Care Education/Training Program
DX: R16.1 Splenomegaly, not elsewhere classified (principal)
CPT/HCPCS: 74174; Q9967

== ENCOUNTER 2023-12-31 09:18 | Emergency (ER) | payer OTHER ==
--- NOTE | 2023-12-31 10:59 | ED Physician Documentation ---
History of Present Illness - Stated complaint Stated Complaint: BRADLEY, STOMACH PX - Chief complaint Chief Complaint: General - History obtained from History obtained from: Patient - Additonal information Additional information: The pt comes to the ED with CC of migraine that started two days ago. He has a long-standing history of these, and this feels the same. He denies fevers, chills, neck pain, or head injury. No neuro deficits. Mild nausea with LUQ pain, mild. No vomiting. He takes rizatriptan as needed at home. He states he already missed 2 days of work, so the [employer] told him to come here and get "checked out". The pt states he wants no treatment, just a work note. He apologizes, stating he doesn't think he needs to be here, but they made him come. PD PAST MEDICAL HISTORY - Past Medical History Past Medical History: Yes Cardiovascular: None Respiratory: None Neuro: Migraines, Other Endocrine/Autoimmune: None GI: GERD : None HEENT: None Psych: None Musculoskeletal: None Derm: None - Past Surgical History Past Surgical History: No General: Colonoscopy, EGD - Present Medications Home Medications: Ambulatory Orders Medication Instructions Recorded Confirmed Metoclopramide [Reglan] 10 mg ORAL Q6HR PRN 02/19/23 08/12/23 Rizatriptan Benzoate [Rizatriptan] 5 mg ORAL DAILY PRN 02/19/23 08/12/23 Verapamil [Calan] 80 mg ORAL BIDAC 02/19/23 08/12/23 Albuterol Sulfate [Proair 3 puffs IH QID 10 Days #1 each 08/12/23 Respiclick] Amox/Clav 875/125 [Augmentin 1 tablet PO Q12H 08/12/23 08/12/23 875/125 Tab] Docusate Sodium 100Mg Capsule 100 mg PO DAILY #15 cap 08/12/23 [Colace 100Mg Capsule] Doxycycline [Vibramycin] 100 mg PO BID 08/12/23 08/12/23 HYDROcod/ACETAM 5/325 [[place] 5/325] 1 ea PO Q6H PRN #14 tablet 08/12/23 Ondansetron Odt [Zofran] 4 mg TL Q6H PRN #15 tablet 08/12/23 Sucralfate [Carafate] 1 gm PO ACHS 7 Days #280 ml 08/12/23 Famotidine [Pepcid] 20 mg PO DAILY #20 tablet 09/01/23 HYDROcod/ACETAM 5/325 [[place] 5/325] 1 ea PO Q6H PRN #18 tablet 09/01/23 Metoclopramide [Reglan] 10 mg PO Q6H PRN #30 tablet 09/01/23 dexAMETHasone [Decadron] 4 mg PO DAILY #5 tablet 09/01/23 - Allergies Allergies/Adverse Reactions: Allergies Allergy/AdvReac Type Severity Reaction Status Date / Time No Known Drug Allergies Allergy Verified 12/31/23 09:25 - Social History Does the pt smoke?: No Smoking Status: Never smoker Does the pt drink ETOH?: No Does the pt have substance abuse?: No - Immunizations Immunizations are current?: Yes - POLST Patient has POLST: No PD ED PE NORMAL - Vitals Vital signs reviewed: Yes - General General: Alert and oriented X 3, No acute distress, Well developed/nourished - HEENT HEENT: Atraumatic, EOMI, Moist mucous membranes - Neck Neck: Supple, no meningeal sign - Cardiac Cardiac: RRR, No murmur - Respiratory Respiratory: No respiratory distress, Clear bilaterally - Abdomen Abdomen: Soft, Non tender, Non distended - Derm Derm: Normal color, Warm and dry, No rash - Extremities Extremities: No deformity - Neuro Neuro: Other (Alert, no gross deficits.) - Psych Psych: Normal mood, Normal affect Results - Vitals Vitals: Oxygen O2 Source Room air PD Medical Decision Making - ED course Complexity details: considered differential, d/w patient ED course: The pt states his sx today are typical of his many past episodes, and I have offered him symptomatic treatment, at least. However, the pt declined. He was well-appearing, and without fever, meningeal signs, or neuro deficits, and was stable for d/c home. We have discussed the usual indications for return. Departure - Departure Disposition: Home, Self Care Clinical Impression: Migraine Qualifiers: Migraine type: unspecified Status migrainosus presence: without status migrainosus Intractability: not intractable Qualified Code(s): G43.909 - Migraine, unspecified, not intractable, without status migrainosus Condition: Stable Instructions: ED Headache Migraine Forms: PCP List, Activity restrictions Discharge Date/Time: 12/31/23 11:08
[2023-12-31 11:14] VITALS: BP 138/97; O2SAT 97
== END 2023-12-31 11:08 | disposition home or self-care (01) ==
LOC: ED 09:18
DX: G43.909 Migraine, unspecified, not intractable, without status migrainosus (principal)
CPT/HCPCS: 99281; 99283